=== PATIENT | female | born 2005 | race African-American/Black ===

== ENCOUNTER 2024-12-27 10:48 | Emergency (ER) | payer BC ==
[2024-12-27 11:29] LABS: #Basophils Less than 0.03 10x3/uL (0.0-0.2); #Eosinophils 0.05 10x3/uL (0.0-0.7); #Monocytes 0.43 10x3/uL (0.11-0.59); #Neutrophils 6.18 10x3/uL (1.40-6.50); %Basophils 0.3 % (0.0-1.0); %Eosinophils 0.7 % (0.0-10.0); %Lymphocytes 2.3 % (21.0-51.0); %Monocytes 6.3 % (0.0-10.0); %Neutrophils 90.1 % (42.0-75.0); Hematocrit 35.3 % (36.0-47.0); Hemoglobin 12.2 g/dL (12.0-16.0); Mean Corpuscular Hemoglobin 29.6 pg (27.0-31.0); Mean Corpuscular Volume 85.7 fL (78.0-98.0); Platelet Count 233 10x3/uL (130-400); Red Blood Cell (RBC) Count 4.12 mill/uL (4.20-5.40); White Blood Cell (WBC) Count 6.86 10x3/uL (4.8-10.8)
[2024-12-27 11:49] LABS: ALT (SGPT) 7 U/L (Less than 34); AST (SGOT) 21 U/L (11-34); Albumin 3.9 g/dL (3.1-4.5); Alkaline Phosphatase 59 U/L (40-110); Anion Gap 13 mmol/L (10-20); BUN (Urea Nitrogen) 10 mg/dL (7.0-18.7); Bilirubin, Total 0.3 mg/dL (0.3-1.2); Calc. Creatinine Clearance 0 mL/min (70-130); Calcium 8.7 mg/dL (7.8-10.44); Carbon Dioxide 19 mmol/L (22-29); Chloride 108 mmol/L (98-107); Globulin 3.1 g/dL (2.4-3.5); Glucose 92 mg/dL (70-105); Magnesium 1.5 mg/dL (1.6-2.6); Potassium 3.7 mmol/L (3.5-5.1); Sodium 136 mmol/L (136-145)
[2024-12-27] MEDS ORDERED: Magnesium 2 GM/50 ML BAG (IN WATER) ONE (11:54)
[2024-12-27] MEDS ORDERED: Ketorolac Tromethamine 30 MG (1 mL) VIAL ONE (11:54)
[2024-12-27] MEDS ORDERED: Ondansetron PF 4 MG/2 ML Vial ONE (11:54)
== END 2024-12-27 13:00 | disposition home or self-care (01) ==
LOC: ERS 10:48
DX: B34.9 Viral infection, unspecified (principal)
CPT/HCPCS: 71045; 80053; 83735; 84484; 85025; 85379; 87428; 93005; 96365; 96375; J1885; J2405; J3475